=== PATIENT | female | born 1960 | race Caucasian/White ===

== ENCOUNTER → 2016-10-22 | Outpatient (CLI) | payer BC ==
--- NOTE | 2016-10-23 10:42 | KCIC ---
PROCEDURE MR of the left ankle HISTORY Left ankle pain and swelling, chronic. No known injury. COMPARISON None TECHNIQUE Routine multiplanar sequences are obtained. FINDINGS Longitudinal split tear of the peroneus brevis tendon. Peroneus longus tendon intact. Anterior talofibular ligament, calcaneofibular ligament and posterior talofibular ligament demonstrate mild thickening and ill definition compatible with sprain or scarring. No rupture or discontinuity. Anterior inferior tibiofibular ligament is intact. Posterior tibial and flexor tendons are intact. Minimal posterior tibial tendon sheath fluid. No acute medial ligament tear. Anterior tibial and extensor tendons are intact. Achilles tendon intact. Mild thickening and signal within the central band of the plantar aponeurosis compatible with mild plantar fasciitis. No adjacent acute edema or fluid. Degenerative changes at the posterior subtalar joint with subchondral cysts and edema. Tarsal sinus is intact. Exostotic bone lesion arises from the medial distal tibia, just above the joint line, compatible with an osteochondroma. There is secondary bone loss or erosion of the fibula with a chronic and nonaggressive appearance. The lesion measures 3.2 centimeters cephalocaudal by 1.5 cm AP, and measures approximately 7 millimeters from base to tip. The adjacent fibula is very thin and, and could be at fracture risk. No evidence of acute marrow edema here. No evidence soft tissue mass or concerning cartilaginous component. No evidence of acute fracture. Subcutaneous edema along the lateral ankle. IMPRESSION 1. Findings compatible with an osteochondroma of the distal medial tibia, with secondary pressure erosion of the fibula. The thin remnant of distal fibula could be at risk of fracture. No soft tissue mass identified. Findings were discussed with Dr. Salas at the time of interpretation. 2. Lateral ankle ligament sprain/scarring. 3. Longitudinal split tear of the peroneus brevis tendon. 4. Mild plantar fasciitis. 5. Degenerative changes with subchondral cysts at the posterior subtalar joint. Electronically signed by: Taiwo Woods MD (October 23, 2016 10:41:08)
== END | disposition home or self-care (01) ==
LOC: KCIC MRI 15:03
PROVIDERS: ATTEND Orthopaedic Surgery
DX: M25.572 Pain in left ankle and joints of left foot (principal)
CPT/HCPCS: 73721

== ENCOUNTER 2017-08-04 12:29 | Inpatient (IN) | payer BC ==
[2017-08-04] MEDS ORDERED: 0.9 % SODIUM CHLORIDE 10 ML DISP.SYRIN. IV ×4 (13:00→16:30)
[2017-08-04 13:11] LABS: ADD MAN DIFF? NO
[2017-08-04 13:19] LABS: BASO % 0 % (0-3); EOS % 0 % (0-3); HEMATOCRIT 40.1 % (36.0-47.0); HEMOGLOBIN 13.8 g/dL (12.0-15.5); LYMPH # 0.9 x10^3/uL (1.0-4.8); LYMPH % 9 % (24-48); MEAN CORPUSCULAR HEMOGLOBIN 30 pg (25-35); MEAN CORPUSCULAR HGB CONC 34 g/dL (31-37); MEAN CORPUSCULAR VOLUME 86 fL (79-100); MONO # 1.1 x10^3/uL (0.0-1.1); MONO % 11 % (0-9); NEUT % 80 % (31-73); PLATELET COUNT 193 x10^3/uL (140-400); RED BLOOD COUNT 4.64 x10^6/uL (3.50-5.40)
[2017-08-04] MEDS: ONDANSETRON PF 4 MG/2 ML VIAL. IV ×2 (13:19)
[2017-08-04] MEDS: IV NORMAL SALINE 1000ML BAG 1,000 ML IV ×2 (13:20)
[2017-08-04 13:21] LABS: BILIRUBIN,URINE NEGATIVE (NEG); CLARITY,URINE CLEAR; COLOR,URINE YELLOW; GLUCOSE,URINE NEGATIVE (NEG); NITRITE,URINE NEGATIVE (NEG); PH,URINE 7.5; PROTEIN,URINE NEGATIVE (NEG-TRACE); UROBILINOGEN,URINE 0.2 mg/dL (0.2 mg/dL)
[2017-08-04] MEDS: KETOROLAC 30 MG/ML INJ. IV ×2 (13:23)
[2017-08-04 13:35] LABS: BACTERIA,URINE 0 /HPF (0-FEW); RBC,URINE 0 /HPF (0-2); SQUAMOUS EPITHELIAL CELL,UR MOD /LPF
[2017-08-04 13:38] LABS: ANION GAP 12 (6-14); BLOOD UREA NITROGEN 14 mg/dL (7-20); CALCIUM 9.4 mg/dL (8.5-10.1); CARBON DIOXIDE 27 mmol/L (21-32); CHLORIDE 99 mmol/L (98-107); CREATININE 0.8 mg/dL (0.6-1.0); GFR 73.9; GLUCOSE 126 mg/dL (70-99); POTASSIUM 3.6 mmol/L (3.5-5.1); SODIUM 138 mmol/L (136-145)
[2017-08-04 13:40] LABS: ALBUMIN 3.8 g/dL (3.4-5.0); ALK PHOS 79 U/L (46-116); ALT (SGPT) 29 U/L (14-59); AST (SGOT) 21 U/L (15-37); DIRECT BILIRUBIN 0.1 mg/dL (0.0-0.2); TOTAL BILIRUBIN 0.7 mg/dL (0.2-1.0); TOTAL PROTEIN 7.5 g/dL (6.4-8.2)
[2017-08-04 13:42] LABS: TROPONINI < 0.017 ng/mL (0.000-0.055)
[2017-08-04 13:45] LABS: CKMB INDEX 1.1 % (0-4); CKMB MASS 1.1 ng/mL (0.0-3.6); CREATINE KINASE 100 U/L (26-192)
[2017-08-04] MEDS: IV RINGERS,LACTATED 1000ML 1,000 ML IV ×2 (14:12)
[2017-08-04] MEDS ORDERED: MORPHINE SULFATE 2 MG/ML DISP.SYRIN. IV ×2 (14:15)
[2017-08-04] MEDS ORDERED: PROCHLORPERAZINE 10 MG/2 ML VIAL. IV ×2 (14:15)
[2017-08-04] MEDS ORDERED: ONDANSETRON PF 4 MG/2 ML VIAL. IV ×4 (14:15→16:30)
[2017-08-04] MEDS ORDERED: HYDROmorphone 2 MG/ML VIAL IV ×4 (14:15→16:30)
[2017-08-04] MEDS ORDERED: fentaNYL PF VIAL 100 MCG/2 ML VIAL IV ×4 (14:15)
[2017-08-04] MEDS ORDERED: LIDOCAINE 1% PF 2 ML VIAL. ID ×2 (14:15)
[2017-08-04] MEDS ORDERED: SEVOFLURANE 61 TO 120 MINUTES. IH ×2 (14:16)
[2017-08-04] MEDS ORDERED: NEOSTIGMINE METHYLSULFATE 5 MG/5 ML SYRINGE. ×2 (14:18)
[2017-08-04] MEDS ORDERED: ROCURONIUM 50 MG/5 ML VIAL. ×2 (14:18)
[2017-08-04] MEDS ORDERED: MIDAZOLAM HCL/PF 2 MG/2 ML VIAL. ×2 (14:18)
[2017-08-04] MEDS ORDERED: SUCCINYLCHOLINE 200 MG/10 ML VIAL. ×2 (14:18)
[2017-08-04] MEDS ORDERED: PROPOFOL 20 ML IV ×2 (14:19)
[2017-08-04] MEDS ORDERED: ONDANSETRON PF 4 MG/2 ML VIAL. ×2 (14:19)
[2017-08-04] MEDS ORDERED: DEXAMETHASONE SOD PHOS 20 MG/5 ML VIAL. ×2 (14:19)
[2017-08-04] MEDS ORDERED: GLYCOPYRROLATE 1 MG/5 ML VIAL. ×2 (14:19)
[2017-08-04] MEDS ORDERED: KETOROLAC 30 MG/ML INJ FOR OR. INJ ×2 (14:19)
[2017-08-04] MEDS ORDERED: LIDOCAINE 2% PF Vial for OR 5 ML VIAL. ×2 (14:19)
[2017-08-04] MEDS ORDERED: SURGICEL HEMOSTAT 4X8 EACH. ×2 (14:34)
[2017-08-04] MEDS: BACITRACIN 50,000 UNIT in IV NORMAL SALINE 500ML BAG 500 ML IRR (15:00)
[2017-08-04] MEDS: BUPIVACAINE-EPI 0.25%-1:200000 50 ML VIAL. ×2 (15:17)
[2017-08-04] MEDS ORDERED: PHENYLEPHRINE in 0.9% NACL PF 1 MG/10 ML SYRINGE. IV (15:20)
[2017-08-04] MEDS: POTASSIUM CL 20MEQ-0.45% NACL 1,000 ML IV ×2 (16:23)
[2017-08-04] MEDS ORDERED: diphenhydrAMINE 50 MG/ML VIAL IV ×2 (16:30)
[2017-08-04] MEDS: ENOXAPARIN 40 MG/0.4 ML SYRINGE. SQ ×2 (16:30)
[2017-08-04] MEDS ORDERED: DEXTROSE 50% 25 GM / 50ML DISP.SYRIN. IV ×2 (16:30)
[2017-08-04] MEDS ORDERED: diphenhydrAMINE HCL 25 MG CAPSULE PO ×2 (16:30)
[2017-08-04] MEDS: DOCUSATE SODIUM 100 MG CAPSULE. PO ×2 (20:11)
[2017-08-05] MEDS: oxyCODONE/APAP 5/325 1 TAB TABLET PO ×2 (08:57)
[2017-08-05] MEDS: DOCUSATE SODIUM 100 MG CAPSULE. PO ×2 (08:57)
== END 2017-08-05 15:10 | disposition home or self-care (01) | DRG 343 ==
LOC: ER 12:29 → 4 NORTH 15:04
PROC: 0DTJ4ZZ Resection of Appendix, Percutaneous Endoscopic Approach (ICD-10-PCS; principal; 2017-08-04 14:45)
DX: K35.80 Unspecified acute appendicitis (principal); E66.9 Obesity, unspecified; E78.00 Pure hypercholesterolemia, unspecified; E78.5 Hyperlipidemia, unspecified; I10 Essential (primary) hypertension; K21.9 Gastro-esophageal reflux disease without esophagitis; K40.90 Unilateral inguinal hernia, without obstruction or gangrene, not specified as recurrent; G47.9 Sleep disorder, unspecified; N85.2 Hypertrophy of uterus; Z82.49 Family history of ischemic heart disease and other diseases of the circulatory system; Z85.828 Personal history of other malignant neoplasm of skin; Z90.721 Acquired absence of ovaries, unilateral; Z68.35 Body mass index [BMI] 35.0-35.9, adult; Z88.8 Allergy status to other drugs, medicaments and biological substances
CPT/HCPCS: 36415; 74176; 80048; 80076; 81001; 82553; 84484; 85025; 87086; 88304; 93005; 96361; 96374; 96375; 99285; 99285-25; C1769; J0330; J0690; J1100; J1885; J2250; J2370; J2405; J2704; J2710; J3490; J7030; J7120

== ENCOUNTER 2018-04-28 14:55 | Emergency (ER) | payer BC ==
[~2018-04-28] VITALS: Ht 160 cm; Wt 93.0 kg
[~2018-04-28 14:55] MED LIST changes: -HYDR-2758 PO
[2018-04-28 15:10] VITALS: BP 168/90
--- NOTE | 2018-04-28 15:24 | PHYS DOC ---
Past Medical History Past Medical History: Cancer, GERD, High Cholesterol, Hypertension, Ovarian Cyst Past Surgical History: Appendectomy, Oophorectomy, Other Additional Past Surgical Histo: right oopherectomy, sinus surgery, d&c Alcohol Use: Rarely Drug Use: None Adult General Chief Complaint Chief Complaint: MECHANICAL FALL HPI HPI Patient is a 57 year old female who presents to the ER with complaints of left ankle pain. She states that she rolled her ankle inward and then fell around 1330. Currently she denies any pain at rest. She states she took 2 ibuprofen at home before coming to the hospital for a echocardiogram at 1400. She denies any numbness or tingling of the extremity. Review of Systems Review of Systems Constitutional: Denies fever or chills [] Musculoskeletal: Lateral L ankle pain Integument: Denies rash or skin lesions [] Neurologic: Denies headache, focal weakness or sensory changes [] All other systems were reviewed and found to be within normal limits, except as documented in this note. Allergies Allergies Allergies Coded Allergies Type Severity Reaction Last Updated Verified lisinopril Allergy Intermediate rash 08/04/17 Yes Physical Exam Physical Exam Constitutional: Well developed, well nourished, no acute distress, non-toxic appearance. [] HENT: Normocephalic, atraumatic, bilateral external ears normal, no oral exudates, nose normal. [] Eyes: PERRLA, conjunctiva normal, no discharge. [] Skin: Warm, dry, no erythema, no rash. [] Extremities: L lateral ankle tenderness, no cyanosis, no clubbing, ROM intact, no edema. [] Neurologic: Alert and oriented X 3, normal motor function, normal sensory function, no focal deficits noted. [] Psychologic: Affect normal, judgement normal, mood normal. [] Current Patient Data Vital Signs Vital Signs Date Time Temp Pulse Resp B/P (MAP) Pulse Ox O2 Delivery O2 Flow Rate FiO2 04/28/18 15:10 97.9 110 18 168/90 (116) 98 Room Air 97.9 EKG EKG [] Radiology/Procedures Radiology/Procedures PROCEDURE: ANKLE LEFT 3V 3 view left ankle 04/28/2018 CLINICAL INDICATION: Rolled left ankle with left ankle pain and swelling. COMPARISON: Left ankle MRI 10/22/2016 FINDINGS: There is an oblique fracture above the level of the plafond of the distal fibula with mild posterior displacement of the distal fracture fragment. Talar dome is maintained. No ankle joint space widening. Subtalar articulation is maintained. There is a broad-based osseous excrescence from the distal posterior medial tibia with results in bony remodeling and thinning of the fibula at the level of the fracture. Moderate subtalar osteoarthrosis of the posterior facet. IMPRESSION: 1. Mildly displaced fracture of the distal fibula above the level of the plafond. 2. Osteochondroma of the medial distal tibia at the level the fracture. [] Course & Med Decision Making Course & Med Decision Making Pertinent Labs and Imaging studies reviewed. (See chart for details) dx; L distal fibula fracture Pt placed in a posterior short leg with stirrup splint, walker with gait instructions provided. Rx for hydrocodone, Follow up with Dr. Westbrook this week. Return to ER if symptoms worsen. Patient verbalized an understanding of home care, medications, follow-up, and return to ED instructions and was in agreement with the plan of care. [] Dragon Disclaimer Dragon Disclaimer This electronic medical record was generated, in whole or in part, using a voice recognition dictation system. Departure Departure Impression: Primary Impression: Closed fracture of distal end of left fibula Disposition: HOME, SELF-CARE Condition: STABLE Referrals: KATELYNN SOTO MD (PCP) JESS WESTBROOK MD Patient Instructions: Fibular Fracture, Ankle, Adult, Treated with or without Immobilization Additional Instructions: Fill the prescription and use as directed. May also take ibuprofen as needed for pain relief. Recommend application of ice, elevation, and rest of affected extremity. Wear the splint that was placed until follow up appointment with Dr. Westbrook this week. Return to the ER if your symptoms worsen. Scripts Hydrocodone Bit/Acetaminophen (HYDROCODONE-APAP 5-325 ) 1 Each Tablet 1-2 TAB PO PRN Q6HRS PRN for PAIN for 4 Days, #16 TAB 0 Refills Prov: COCO ROMAN PULP PILER 04/28/18 Splinting Splinting : Location: [facility] Hand-Made Type: orthoglass Splint: posterior short leg with stirrup Pre-Proc Neuro Vasc Exam: normal Post-Proc Neuro Vasc Exam: normal, unchanged from pre-exam Problem Qualifiers Primary Impression: Closed fracture of distal end of left fibula Encounter type: initial encounter Fracture morphology: other fracture Qualified Codes: S82.832A - Other fracture of upper and lower end of left fibula, initial encounter for closed fracture COCO ROMAN PULP PILER Apr 28, 2018 15:24
--- NOTE | 2018-04-28 15:46 | RAD ---
3 view left ankle 04/28/2018 CLINICAL INDICATION: Rolled left ankle with left ankle pain and swelling. COMPARISON: Left ankle MRI 10/22/2016 FINDINGS: There is an oblique fracture above the level of the plafond of the distal fibula with mild posterior displacement of the distal fracture fragment. Talar dome is maintained. No ankle joint space widening. Subtalar articulation is maintained. There is a broad-based osseous excrescence from the distal posterior medial tibia with results in bony remodeling and thinning of the fibula at the level of the fracture. Moderate subtalar osteoarthrosis of the posterior facet. IMPRESSION: 1. Mildly displaced fracture of the distal fibula above the level of the plafond. 2. Osteochondroma of the medial distal tibia at the level the fracture. Electronically signed by: Santhosh Duvall MD (04/28/2018 3:43 PM) [id number]
[2018-04-28] MEDS ORDERED: HYDR-2758 PO (16:29)
== END 2018-04-28 16:35 | disposition home or self-care (01) ==
LOC: ER 14:55
DX: S82.832A Other fracture of upper and lower end of left fibula, initial encounter for closed fracture (principal); K21.9 Gastro-esophageal reflux disease without esophagitis; E78.00 Pure hypercholesterolemia, unspecified; I10 Essential (primary) hypertension; Z90.89 Acquired absence of other organs; Z88.8 Allergy status to other drugs, medicaments and biological substances; W19.XXXA Unspecified fall, initial encounter; Y93.89 Activity, other specified; Y92.89 Other specified places as the place of occurrence of the external cause; Y99.8 Other external cause status
CPT/HCPCS: 29515; 73610; 99284

== ENCOUNTER → 2018-04-28 | Outpatient (CLI) | payer BC ==
[2017-08-05 11:00] VITALS: BP 111/52
[~2018-04-28] MED LIST: FLUT9.9S NS; HYDR-2758 PO; OLME1TAB25 PO; PANT20TA2 PO
--- NOTE | 2018-04-28 15:45 | CARD ---
MR#: [id number] Date of Study: 04/28/2018 Ordering Physician: HEMANT ESPINOSA, Referring Physician: HEMANT ESPINOSA Tech: Adeola Martinez RDCS APPROVED REPORT EXAM: Two-dimensional and M-mode echocardiogram with Doppler and color Doppler. Other Information Quality : AverageHR: 103bpm Rhythm : Tachycardia INDICATION Hypertension/HCVD 2D DIMENSIONS RVDd2.7 (2.9-3.5cm)Left Atrium(2D)2.8 (1.6-4.0cm) IVSd1.0 (0.7-1.1cm)Aortic Root(2D)2.9 (2.0-3.7cm) LVDd4.3 (3.9-5.9cm)LVOT Diameter2.0 (1.8-2.4cm) PWd1.2 (0.7-1.1cm)LVDs2.5 (2.5-4.0cm) FS (%) 43.1 %SV63.1 ml M-Mode DIMENSIONS Left Atrium(MM)2.88 (2.5-4.0cm)Aortic Root3.26 (2.2-3.7cm) Aortic Valve AoV Peak Josh.176.3cm/sAoV VTI30.7cm AO Peak GR.12.4mmHgLVOT Peak Josh.101.1cm/s AO Mean GR.6mmHgAVA (VMAX)1.74cm2 MICHAELLE (VTI)1.80cm2 Mitral Valve MV E Yxmvnsup72.3cm/sMV E Peak Gr.4mmHg MV DECEL [id number] A Aoyigilq62.1cm/s MV E Mean Gr.2mmHgE/A Ratio0.8 MV A Lzjdbbrq21ig Pulmonary Valve PV Peak Rxeoiplk36.3cm/s Tricuspid Valve TR P. Wccitmpr141sg/sRAP CLJLJUXB0oyUa TR Peak Gr.73jdXxQRRW49gvAx LEFT VENTRICLE The left ventricle is normal size. There is normal left ventricular wall thickness. The left ventricu lar systolic function is normal and the ejection fraction is within normal range. The Ejection Fracti on is 60-65%. There is normal LV segmental wall motion. Transmitral Doppler flow pattern is Grade I-a bnormal relaxation pattern. RIGHT VENTRICLE The right ventricle is normal size. There is normal right ventricular wall thickness. The right ventr icular systolic function is normal. ATRIA The left atrium size is normal. The right atrium size is normal. The interatrial septum is intact wit h no evidence for an atrial septal defect or patent foramen ovale as noted on 2-D or Doppler imaging. AORTIC VALVE The aortic valve is trileaflet. The aortic valve is normal in structure and function. Doppler and Col or Flow revealed no significant aortic regurgitation. There is no significant aortic valvular stenosi s. MITRAL VALVE The mitral valve is normal in structure and function. There is no evidence of mitral valve prolapse. There is no mitral valve stenosis. Doppler and Color-flow revealed trace mitral regurgitation. TRICUSPID VALVE The tricuspid valve is normal in structure and function. Doppler and Color Flow revealed trace tricus pid regurgitation. The PA pressure was estimated at 27 mmHg. There is no tricuspid valve prolapse or vegetation. There is no tricuspid valve stenosis. PULMONIC VALVE Pulmonic valve not well visualized. GREAT VESSELS The aortic root is normal in size. The ascending aorta is normal in size. PERICARDIAL EFFUSION There is no evidence of significant pericardial effusion. Critical Notification Critical Value: No <Conclusion> The left ventricle is normal size. The left ventricular systolic function is normal and the ejection fraction is within normal range. The Ejection Fraction is 60-65%. There is no significant aortic valvular stenosis. Doppler and Color Flow revealed no significant aortic regurgitation. Doppler and Color-flow revealed trace mitral regurgitation. Doppler and Color Flow revealed trace tricuspid regurgitation. The PA pressure was estimated at 27 mmHg. Signed by : Brandon Kenyon MD Electronically Approved : 04/28/2018 15:44:24
== END | disposition home or self-care (01) ==
LOC: ECHO 14:10
PROVIDERS: ATTEND Internal Medicine Cardiovascular Disease
DX: I10 Essential (primary) hypertension (principal)
CPT/HCPCS: 93306

== ENCOUNTER 2018-05-19 08:25 | Observation (INO) | payer BC ==
[~2018-05-19] VITALS: Ht 162.6 cm; Wt 90.7 kg
[2018-05-19] VITALS (10 sets, daily range): BP systolic 114–131; BP diastolic 58–80
[~2018-05-19 08:25] MED LIST changes: +HYDR-2761 PO; +HYDROmorphone 2 MG/ML VIAL IV PRN; +IV RINGERS,LACTATED 1000ML 1,000 ML IV SCH; +LIDOCAINE 1% PF 2 ML VIAL. ID PRN; +MORPHINE SULFATE 2 MG/ML VIAL. IV PRN; +ONDANSETRON PF 4 MG/2 ML VIAL. IV PRN; +PROCHLORPERAZINE 10 MG/2 ML VIAL. IV PRN; +fentaNYL PF VIAL 100 MCG/2 ML VIAL IV PRN
[2018-05-19] MEDS ORDERED: SEVOFLURANE > 120 MINUTES. IH ONE (08:53)
[2018-05-19] MEDS ORDERED: DEXAMETHASONE SOD PHOS 20 MG/5 ML VIAL. ONE (08:53)
[2018-05-19] MEDS ORDERED: LIDOCAINE 2% PF Vial for OR 5 ML VIAL. ONE (08:54)
[2018-05-19] MEDS ORDERED: KETOROLAC 30 MG/ML INJ FOR OR. INJ ONE (08:54)
[2018-05-19] MEDS ORDERED: ONDANSETRON PF 4 MG/2 ML VIAL. ONE (08:54)
[2018-05-19] MEDS ORDERED: PROPOFOL 20 ML IV ONE (08:54)
[2018-05-19] MEDS ORDERED: BUPIVACAINE MPF 0.5% 30 ML VIAL. ONE (09:27)
[2018-05-19] MEDS ORDERED: LIDOCAINE 1% 20 ML VIAL. ONE (09:27)
[2018-05-19] MEDS ORDERED: POLYETHYLENE GLYCOL 3350 17 GM PACKET. PO PRN (09:45)
[2018-05-19] MEDS ORDERED: DEXTROSE 50% 25 GM / 50ML DISP.SYRIN. IV PRN (09:45)
[2018-05-19] MEDS ORDERED: fentaNYL PF VIAL 100 MCG/2 ML VIAL IV PRN (09:45)
[2018-05-19] MEDS ORDERED: MORPHINE SULFATE 4 MG/ML VIAL. IV PRN (09:45)
[2018-05-19] MEDS ORDERED: MORPHINE SULFATE 2 MG/ML VIAL. IV PRN (09:45)
[2018-05-19] MEDS ORDERED: ONDANSETRON PF 4 MG/2 ML VIAL. IV PRN (09:45)
[2018-05-19] MEDS ORDERED: oxyCODONE IR 5 MG TABLET PO PRN (09:45)
[2018-05-19] MEDS ORDERED: FAMOTIDINE 20 MG/2 ML VIAL ONE (09:47)
[2018-05-19] MEDS ORDERED: fentaNYL PF VIAL 100 MCG/2 ML VIAL ONE (10:36)
--- NOTE | 2018-05-19 10:51 | PDOC4 ---
Operative Note Operative Note Due to procedure: 05/11/2018 Surgeon: Vinay Boucher Salesperson [employer] Goods: Maura Holguin, certified technician Preoperative diagnosis: Displaced closed left distal fibula fracture Postoperative diagnosis: Same Procedure performed: Open reduction internal fixation left distal fibula Anesthesia: Gen. Findings: Acute fracture at distal fibula Stable external rotation stress test Tourniquet time: 60 min Blood loss: 10 mL Components inserted: High and nephew 7 hole distal fibula left locking plate Complications: none Reason for procedure: Patient is very pleasant female who suffered a twisting injury to her ankle. Id seen and evaluated and followed her in my outpatient orthopedic surgery clinic. Follow-up radiographs demonstrated lateral talar shift and I recommended we proceed with operative intervention. I discussed risks, benefits, and alternatives with her. She wished to proceed. Description of procedure: Patient was greeted in the preoperative area by myself the correct extremity was verified and marked. She staying back to the operative suite and her antibiotics were started as she was brought back. Once in the operating room, she was transferred gently supine to the operating room table and secured to bed with all pressure points padded and had successful induction of a general anesthetic. We removed her cam walker and performed a chlorhexidine pre-scrub. The left lower extremity was then prepped and draped in our usual sterile fashion we conducted our standard preoperative timeout. I palpated and marked surface anatomy and luis carlos a line from his standard lateral distal fibular incision and incised skin with a scalpel. I used electrocautery for hemostasis and dissected subcutaneous tissue with Metzenbaums. I incised fashion line with the skin incision and identified the fracture site. I debrided the clot and early callus with comminution of small Pio, dental pick and metal tipped suction device. I used a periosteal elevator to expose the distal fibula in anticipation my plate application. Digital pressure and a point -to-point facilitated a reduction. I confirmed appropriate reduction under AP oblique and lateral C-arm images. I sized my plate and checked my images and then secured the plate to the bone with a nonlocking 35 screw above the fracture site. I then placed a 2.7 mm screw in lag fashion across the fracture site. I then secured the plate to the bone with a nonlocking screw distal to the fracture site and then I then placed locking screws distal to the fracture site . I then placed a nonlocking 3.5 mm screws to fill the remainder of the holes proximal to the fracture site. I then performed my external rotation stress test. This was negative. After this, the wound was thoroughly irrigated out and I took my final images. I then closed fascia with simple interrupted 0 Vicryl. Inverted interrupted 2-0 Vicryl was used for subcutaneous tissue and 3- 0 nylon in a mattress fashion for skin. I injected about 20 mL of a local anesthetic mixture into the konrad-incisional soft tissues. Prior to wound closure , all counts correct 2. No complications. Sterile padded dressing was applied followed by placing her back into her cam boot. She tolerated surgery well. At the conclusion of the surgery, she was awakened and transferred gently supine to the hospital bed and taken to the PACU in a stable and extubated condition. Postoperative plan is to admit her to the floor for observation and consider placement. VINAY BOUCHER II, MD May 19, 2018 10:51
[2018-05-19 11:03] LABS: U PREG PATIENT NEGATIVE (NEG)
[2018-05-19] MEDS ORDERED: IV 1/2 NORMAL SALINE 1,000 ML IV SCH (12:00)
[2018-05-19] MEDS: HYDROcodone/APAP 7.5/325MG 1 TAB TABLET PO PRN ×2 (14:27→22:51)
[2018-05-20] MEDS: HYDROcodone/APAP 7.5/325MG 1 TAB TABLET PO PRN ×4 (02:48→16:31)
[2018-05-20 03:00] VITALS: BP 120/57
[2018-05-20] MEDS ORDERED: MAGNESIUM HYDROXIDE 2,400 MG/30 ML ORAL.SUSP. PO PRN (06:00)
[2018-05-20 07:00] VITALS: BP 120/54
[2018-05-20] MEDS ORDERED: PANTOPRAZOLE 40 MG TABLET.DR. PO SCH (07:30)
[2018-05-20] MEDS ORDERED: MULTIVITAMIN with MINERAL TABLET. PO SCH (09:00)
[2018-05-20] MEDS ORDERED: OLMESARTAN PO SCH (09:00)
[2018-05-20] MEDS ORDERED: LOSARTAN POTASSIUM 50 MG TABLET. PO SCH (09:00)
[2018-05-20] MEDS ORDERED: FLUTICASONE 50MCG/NASAL SPRAY 16GM BOTTLE. NS SCH (09:00)
[2018-05-20] MEDS ORDERED: hydroCHLOROthiazide 25 MG TABLET PO SCH (09:00)
[2018-05-20] MEDS ORDERED: HYDROCHLOROTHIAZIDE PO SCH (09:00)
[2018-05-20] MEDS ORDERED: SENNOSIDES/DOCUSATE 8.6/50MG TABLET. PO SCH (09:00)
--- NOTE | 2018-05-20 09:12 | PDOC ---
ORTHO PROGRESS NOTES Subjective Her ankle is a little more sore this morning. She does not feel like she would be safe going home given her limited mobility Vitals Vital Signs Date Time Temp Pulse Resp B/P (MAP) Pulse Ox O2 Delivery O2 Flow Rate FiO2 05/20/18 07:43 16 Room Air 05/20/18 07:00 97.6 65 120/54 (76) 96 97.6 05/20/18 03:48 2.0 Labs Laboratory Tests Test 05/19/18 08:50 Urine Test Negative (NEG) Notes She is awake and alert and lying in bed. Dressing is intact. Normal motor and sensation are present in her foot. Assessment and Plan I think she will need placement given her limited mobility. Hopefully social work can help us out with that today. BETY BOUCHER II, MD May 20, 2018 09:11
[2018-05-20 11:00] VITALS: BP 117/53
--- NOTE | 2018-05-20 11:50 | DISCH ---
DISCHARGE DISCHARGE INFORMATION: DISCHARGE DATE: May 20, 2018 FINAL DIAGNOSIS Closed, displaced, left distal fibula fracture CONDITION ON DISCHARGE: Stable CODE STATUS: Code Status: Full PENITENTIARY: SNF STAY <30 DAYS: Yes HOSPICE: HOSPICE: No HOSPICE EVAL & TREAT: No LTAC: ADMIT TO LTAC: No POST DISCHARGE ORDERS: ACTIVITY ORDERS: Activity as tolerated, Other, see below (NWB LLE) DIET AFTER DISCHARGE: Regular WOUND/INCISION CARE: Ice to area for comfort, Keep wound/cast CDI, Keep wound elevated, Do not change dressing, No wound care needed FOLLOW-UP: PHYSICIAN FOLLOW-UP: Eli in 2 wks TREATMENT/EQUIPMENT ORDERS: ADAPTIVE EQUIPMENT NEEDED: None Physical Therapy For: Evalulation/Treatment Occupational Therapy For: Evaluation/Treatment DISCHARGE MEDICATIONS: Home Meds Active Scripts Hydrocodone Bit/Acetaminophen (HYDROCODONE-APAP 5-325 ) 1 Each Tablet, 1-2 TAB PO PRN Q6HRS PRN for PAIN for 4 Days, #16 TAB 0 Refills Prov:COCO ROMAN APRN 04/28/18 Reported Medications Pantoprazole Sodium (PROTONIX) 20 Mg Tablet.dr, 1 TAB PO DAILY, #30 TAB 08/04/17 Fluticasone Propionate (Flonase Allergy Relief) 9.9 Ml [place].susp, 2 SPRAYS NS DAILY, BOTTLE 08/04/17 Olmesartan/Hydrochlorothiazide (BENICAR HCT 40-25 MG TABLET) 1 Each Tablet, 1 TAB PO DAILY, #30 TAB 5 Refills 08/04/17 BETY BOUCHER II, MD May 20, 2018 11:50
--- NOTE | 2018-05-20 11:53 | PDOC3 ---
Discharge Summary Visit Information Date of Admission: May 19, 2018 Date of Discharge: May 20, 2018 Admitting Diagnosis: closed displaced left distal fibula fracture Brief Hospital Course Allergies Allergies Coded Allergies Type Severity Reaction Last Updated Verified lisinopril Allergy Intermediate rash 05/19/18 Yes Vital Signs Vital Signs Date Time Temp Pulse Resp B/P (MAP) Pulse Ox O2 Delivery O2 Flow Rate FiO2 05/20/18 11:40 16 Room Air 05/20/18 11:00 98.2 78 117/53 (74) 96 98.2 05/20/18 03:48 2.0 Lab Results Laboratory Tests Test 05/19/18 08:50 Urine Test Negative (NEG) Brief Hospital Course Ms. Hutchins is a 57 old female who suffered a twisting injury to her left ankle. I'd seen and followed her as an outpatient. Serial radiographs demonstrated displacement of her talus and I discussed the risks, benefits, alternatives to operative intervention and she elected to proceed. She tolerated surgery well and recovered well from anesthesia in the PACU. She was taken up to the medical surgical for for care and observation. She had concerns about her safety at home given her mobility limitations and she was admitted for observation for a rehabilitation evaluation as well. Her pain was controlled on oral pain medicine. Normal bowel and bladder function were present at time of discharge. Her dressing was intact and dry. Normal motor and sensation are present. She remained hemodynamically stable and afebrile. She was tolerating regular diet. She is having difficulty with her activities of daily living secondary to her nonweightbearing left lower extremity Discharge Information Condition at Discharge: Stable Follow Up: Weeks Disposition/Orders: D/C to Another Facility Scheduled Fluticasone Propionate (Flonase Allergy Relief) 9.9 Ml [place].susp, 2 SPRAYS NS DAILY, (Reported) Entered as Reported by: KYRA WREN on 08/04/171251 Last Taken: Unknown Dose on 05/19/18629 Last Action: Converted on 05/19 by TAMIKA BOUCHER MD Olmesartan/Hydrochlorothiazide (Benicar Hct 40-25 Mg Tablet) 1 Each Tablet, 1 TAB PO DAILY, #30 Ref 5 (Reported) Entered as Reported by: KYRA WREN on 08/04/171251 Last Taken: Unknown Dose on 05/19/18629 Last Action: Converted on 05/19 by TAMIKA BOUCHER MD Pantoprazole Sodium (Protonix) 20 Mg Tablet., 1 TAB PO DAILY, #30 (Reported) Entered as Reported by: KYRA WREN on 08/04/17 1252 Last Taken: Unknown Dose on 05/19/18629 Last Action: Converted on 05/19 by TAMIKA BOUCHER MD Scheduled PRN Hydrocodone Bit/Acetaminophen (Hydrocodone-Apap 5-325 ) 1 Each Tablet, 1-2 TAB PO PRN Q6HRS PRN for PAIN for 4 Days, #16 Ref 0 Prescribed by: COCO ROMAN APRN on 04/28/18 1629 Last Taken: Unknown Dose on 05/10/18 Last Action: HELD on 05/19/18937 by TAMIKA BOUCHER MD Patient Instructions Patient Instructions She'll be transferred to rehabilitation. I will see her back in 2 weeks. She'll be nonweightbearing 6 weeks. She can remove the cam boot twice per day to work on range of motion exercises. Wound care was discussed with her and given and written form. I will see her back in 2 weeks, sooner should a problem arise BETY BOUCHER II, MD May 20, 2018 11:53
[2018-05-20 15:00] VITALS: BP 126/79
[2018-05-20] MEDS ORDERED: BISACODYL 10 MG SUPP.RECT. PR PRN (16:00)
== END 2018-05-20 17:30 ==
LOC: SURG 08:25 → 4 NORTH 11:27
PROVIDERS: ADMIT Orthopaedic Surgery Sports Medicine; ATTEND Orthopaedic Surgery Sports Medicine
DX: S82.832A Other fracture of upper and lower end of left fibula, initial encounter for closed fracture (principal); X50.1XXA Overexertion from prolonged static or awkward postures, initial encounter; Y93.89 Activity, other specified; Y92.89 Other specified places as the place of occurrence of the external cause
CPT/HCPCS: 27792; 76000; 81025; 96365; 96366; 97116; 97162; 97166; 97530; 97535; A7015; C1713; G0378; G0379; J0690; J1100; J1885; J2001; J2405; J2704; J3010; J3490

== ENCOUNTER → 2018-08-26 | Outpatient (CLI) | payer BC ==
[~2018-08-26] MED LIST changes: -HYDROmorphone 2 MG/ML VIAL IV PRN; -IV RINGERS,LACTATED 1000ML 1,000 ML IV SCH; -LIDOCAINE 1% PF 2 ML VIAL. ID PRN; -MORPHINE SULFATE 2 MG/ML VIAL. IV PRN; -ONDANSETRON PF 4 MG/2 ML VIAL. IV PRN; -PROCHLORPERAZINE 10 MG/2 ML VIAL. IV PRN; -fentaNYL PF VIAL 100 MCG/2 ML VIAL IV PRN
--- NOTE | 2018-08-26 17:22 | RAD ---
Left lower extremity venous doppler ultrasound Indication:LEFT CALF SWELLING Technique: Color Doppler, grayscale, and spectral waveform analysis is used to evaluate the left femoral and popliteal veins. Findings: The left femoral popliteal venous system is patent with normal compressibility and response to augmentation. Visualized calf veins are patent. IMPRESSION: Negative for left leg deep venous thrombosis. Electronically signed by: Taiwo Woods MD (08/26/2018 5:19 PM) [id number]
== END | disposition home or self-care (01) ==
LOC: US 16:01
PROVIDERS: ATTEND Orthopaedic Surgery Sports Medicine
DX: M79.89 Other specified soft tissue disorders (principal)
CPT/HCPCS: 93971

== ENCOUNTER → 2020-11-23 | Outpatient (CLI) | payer BC ==
[~2020-11-23] MED LIST changes: +REGADENOSON 0.4 MG/5 ML DISP.SYRIN. IV ONE
--- NOTE | 2020-11-23 17:33 | CARD ---
MR#: [id number] Date of Study: 11/23/2020 Ordering Physician: HEMANT ESPINOSA, Referring Physician: HEMANT ESPINOSA Tech: Blanca Nance [facility] APPROVED REPORT EXAM: Two-dimensional and M-mode echocardiogram with Doppler and color Doppler. Other Information Quality : Limited INDICATION RISK FACTORS Hypertension Obesity 2D DIMENSIONS RVDd3.4 (2.9-3.5cm)Left Atrium(2D)3.3 (1.6-4.0cm) IVSd0.9 (0.7-1.1cm)Aortic Root(2D)2.9 (2.0-3.7cm) LVDd4.0 (3.9-5.9cm)LVOT Diameter2.0 (1.8-2.4cm) PWd1.0 (0.7-1.1cm)LVDs2.2 (2.5-4.0cm) FS (%) 46.7 %SV56.6 ml Aortic Valve AoV Peak Josh.147.4cm/sAoV VTI34.4cm AO Peak GR.8.7mmHgLVOT Peak Josh.140.3cm/s AO Mean GR.5mmHgAVA (VMAX)2.95cm2 Mitral Valve MV E Rdpqfnfo42.4cm/sMV DECEL [id number] MV A Dbejooau37.5cm/sE/A Ratio0.9 Tricuspid Valve TR P. Jgufpobs298wd/sTR Peak Gr.25mmHg Pulmonary Vein S1 Jiodhdvw42.9cm/sD2 Zubojzzo14.1cm/s LEFT VENTRICLE The left ventricle is normal size. There is normal left ventricular wall thickness. The left ventricu lar systolic function is normal and the ejection fraction is within normal range. LV ejection fracti on is 55-60%. There is normal LV segmental wall motion. The left ventricular diastolic function and f illing is normal for age. RIGHT VENTRICLE The right ventricle is normal size. There is normal right ventricular wall thickness. The right ventr icular systolic function is normal. ATRIA The left atrium size is normal. The right atrium size is normal. The interatrial septum is intact wit h no evidence for an atrial septal defect or patent foramen ovale as noted on 2-D or Doppler imaging. AORTIC VALVE The aortic valve is normal in structure and function. Doppler and Color Flow revealed no significant aortic regurgitation. There is no significant aortic valvular stenosis. MITRAL VALVE The mitral valve is normal in structure and function. There is no evidence of mitral valve prolapse. There is no mitral valve stenosis. Doppler and Color Flow revealed no mitral valve regurgitation note d. TRICUSPID VALVE The tricuspid valve is normal in structure and function. Doppler and Color Flow revealed trace to mil d tricuspid regurgitation. Estimated PAP 26 mmHg. There is no tricuspid valve stenosis. PULMONIC VALVE The pulmonary valve is normal in structure and function. Doppler and Color Flow revealed no pulmonic valvular regurgitation. GREAT VESSELS The aortic root is normal in size. The ascending aorta is normal in size. The IVC is normal in size a nd collapses >50% with inspiration. PERICARDIAL EFFUSION There is no evidence of significant pericardial effusion. Critical Notification Critical Value: No <Conclusion> The left ventricle is normal size. The left ventricular systolic function is normal and the ejection fraction is within normal range. LV ejection fraction is 55-60%. Doppler and Color Flow revealed no significant aortic regurgitation. There is no significant aortic valvular stenosis. Doppler and Color Flow revealed no mitral valve regurgitation noted. Doppler and Color Flow revealed trace to mild tricuspid regurgitation. Estimated PAP 26 mmHg. Signed by : Brandon Kenyon MD Electronically Approved : 11/23/2020 17:32:56
--- NOTE | 2020-11-23 17:38 | RAD ---
MR#: [id number] Date of Study: 11/23/2020 Ordering Physician: HEMANT ESPINOSA, Referring Physician: SAGRARIO LOVELL Tech: RT Pooja (R) (N) APPROVED REPORT Test Type: Pharmacological Stress Nurse/Tech: Geeta Gilliam R.N. Test Indications: chronic diastolic heart failure Cardiac History: htn Medications: see ehr Medical History: see ehr Resting ECG: sr Resting Heart Rate: 96 bpm Resting Blood Pressure: 142/81mmHg Pretest Chest Pain: No chest pain Nurse/Tech Notes lungs cta, heart tones regular Consent: The procedure was explained to the patient in lay terms. Informed consent was witnessed. Bay eout was entered into [facility]. History and Stress Test performed by DELGADO Sepulveda, HELEN (R) (N) Pharm. Details Pharmacologic stress testing was performed using 0.4mg per 5ml of regadenoson given intravenously ove r 7-10 seconds. Stress Symptoms No chest pain or symptoms. POST EXERCISE Reason for Termination: Infusion complete Target HR: Yes Max HR: 129 bpm Max Blood Pressure: 152/76mmHg Chest Pain: No. Arrhythmia: No. ST Change: No. INTERPRETATION Stress EKG Conclusion: The resting EKG shows a sinus rhythm with slight ST T wave changes. The stress EKG shows no significant changes from baseline. No EKG evidence of stress-induced ischemia. Imaging Protocol IMAGE PROTOCOL: Rest Tc-99m/stress Tc-99m 1 day Rest: Stress: Viability: Radiopharm.Tc99m [id number] Sestamibi Dose10.2mCi 31mCi Duration 15min. 10min. Img Date 11/23/2020 11/23/2020 Inj-Img [id number]. 60min. Rest Admin Site:IV - Left AntecubitalAdministrator:RT Pooja (R)(N) Stress Admin Site: IV - Left AntecubitalAdministrator: DELGADO Sepulveda, HELEN (R)(N) STRESS DATA End Diast. Vol.54.0mlAv. Heart Qzli985.0bpm End Syst. Vol.3.0mlCO Index BSA0.0L/min Myocardial Mass97.0gEject. Wozebjey05.0% Stress Rates Pk. Fill Rate7.43EDV/secLVtime Pk. Fill 145.39msec Pk. Empty Rate8.66ESV/secLVtime Pk. Eject85.59msec 1/3 Pk. Fill1.06EDV/sec Stress Scores Regional WT1.00Summed WT3.00 Regional WM0.00Summed WM0.00 LV Perfusion The stress images show no significant defects. The rest images show no significant defects. Nuclear imaging shows no reversible ischemia or infarct. Wall Motion Left ventricular systolic function is normal with no regional wall motion abnormalities and an ejecti on fraction of greater than 70%. LV Perf. Quant 17 Seg. SSS0.00 17 Seg. SRS0.00 17 Seg. SDS0.00 Stress Defect Extent (% LAD)0.00Rest Defect Extent (% LAD)0.00Rev. Defect Extent (% LAD)0.00 Stress Defect Extent (% LCX) 5.00Rest Defect Extent (% LCX)0.00Rev. Defect Extent (% LCX)0.00 Stress Defect Extent (% RCA)0.00Rest Defect Extent (% RCA)0.00Rev. Defect Extent (% RCA)0.00 Stress Defect Extent (% PRAVIN)0.90Rest Defect Extent (% PRAVIN)0.00Rev. Defect Extent (% RPAVIN)0.00 Conclusion 1. No EKG evidence of stress-induced ischemia. 2. Nuclear imaging shows no reversible ischemia or infarct. 3. Normal left ventricular systolic function with an ejection fraction of greater than 70%. 4. Low risk Lexiscan nuclear stress test. Signed by : Brandon Kenyon MD Electronically Approved : 11/23/2020 17:37:56
== END ==
LOC: NM 09:11
PROVIDERS: ATTEND Internal Medicine Cardiovascular Disease
DX: I07.1 Rheumatic tricuspid insufficiency (principal); I50.32 Chronic diastolic (congestive) heart failure; I10 Essential (primary) hypertension
CPT/HCPCS: 78452; 93017; 93306; A9500; J2785